=== PATIENT | female | born 1950 | race American Indian/Alaskan Native ===

== ENCOUNTER 2016-10-22 06:43 | Day surgery (SDC) | payer MEDICARE ==
--- NOTE | 2016-10-22 06:56 | Anesthesia Consultation ---
Anesthesia Consult and Med Hx Date of service: 10/22/16 - Airway Anesthetic Teeth Evaluation: Edentulous ROM Head & Neck: Inadequate Mental/Hyoid Distance: Adequate Mallampati Class: Class III Intubation Access Assessment: Possibly Difficult - Pulmonary Exam CTA: Yes - Cardiac Exam Cardiac Exam: RRR - Pre-Operative Health Status ASA Pre-Surgery Classification: ASA4 Proposed Anesthetic Plan: General - Pulmonary Hx Smoking: Yes COPD: Yes Hx Sleep Apnea: Yes - Cardiovascular System Hx Hypertension: Yes Hx Coronary Artery Disease: Yes (S/P CABG 2009, ) Hx Heart Attack/AMI: Yes Hx Angina: No (denies chest pain.tightness) Hx Valvular Heart Disease: Yes Hx Peripheral Vascular Disease: Yes - Central Nervous System Hx Back Pain: Yes Hx Psychiatric Problems: Yes - Endocrine Hx Renal Disease: Yes (CKD) Hx Non-Insulin Dependent Diabetes: Yes - Other Systems Hx Cancer: Yes Hx Obesity: Yes (Morbid obesity) - Additional Comments Anesthesia Medical History Comments: Patient has cardiac and pulmonary clearances on chart. He is very high risk for complications and this was discussed in detail with him and his . Risk of post op ventilation is high. Physical exam shows moderated delayed expiratory phase of respiration but patient says he is breathing at baseline. Recent ECHO shows Mild LVH with Mild hypokinesis with EF 40-45%. Recent thallium shows a large fixed defect with no reversables lesion.
--- NOTE | 2016-10-22 06:57 | Anesthesia Day of Surgery ---
Anesthesia Day of Surgery - Day of Surgery Patient Examined: Yes Patient H&P Reviewed: Yes Patient is NPO: Yes Beta Blockers: Yes Cardiac Clearance: Yes Pulmonary Clearance: Yes
[2016-10-22] MEDS ORDERED: NACL 0.9% 1000 ML 1,000 ML IV SCH (07:00)
[2016-10-22] MEDS ORDERED: PEPCID IV NR (07:00)
[2016-10-22] MEDS ORDERED: VERSED IV NR (07:00)
[2016-10-22] MEDS ORDERED: PROVENTIL IH NR (07:00)
[2016-10-22] MEDS ORDERED: NACL 0.9% 500 ML 500 ML IV SCH (08:00)
[2016-10-22 08:02] LABS: Basophils % (Auto) 0.5 % (0.0-1.8); Eosinophils % (Auto) 0.8 % (0.0-4.3); Hematocrit 40.5 % (30.3-42.9); Hemoglobin 13.2 gm/dl (10.1-14.3); Mean Corpuscular HGB Conc 33 % (30-34); Mean Corpuscular Hemoglobin 30 pg (28-32); Mean Corpuscular Volume 91 fl (79-97); Platelet Count 186 K/mm3 (140-440); Red Blood Count 4.42 M/mm3 (3.65-5.03); Red Cell Distribution Width 14.4 % (13.2-15.2); White Blood Count 6.4 K/mm3 (4.5-11.0)
[2016-10-22 08:12] LABS: INR 0.97 (0.87-1.13)
[2016-10-22 08:34] LABS: Anion Gap 17 mmol/L; BUN/Creatinine Ratio 11.11; Blood Urea Nitrogen 10 mg/dL (7-17); Calcium 9.3 mg/dL (8.4-10.2); Carbon Dioxide 25 mmol/L (22-30); Chloride 102.1 mmol/L (98-107); Glucose 141 mg/dL (65-100); Potassium 4.2 mmol/L (3.6-5.0); Sodium 140 mmol/L (137-145)
[2016-10-22] MEDS ORDERED: HEPARIN/NS 5000 UNIT/500ML(CATH LAB) 1,000 ML IR ONE (08:34)
[2016-10-22] MEDS ORDERED: HEPARIN 10,000 UNITS/10 ML ONE (08:34)
[2016-10-22] MEDS ORDERED: VERSED ONE (08:34)
[2016-10-22] MEDS ORDERED: XYLOCAINE 2% INFILTRATI ONE (08:35)
[2016-10-22] MEDS ORDERED: NITROGLYCERIN SYRINGE 0 ML ONE (08:35)
[2016-10-22] MEDS ORDERED: SUBLIMAZE ONE (08:35)
[2016-10-22] MEDS ORDERED: ZOFRAN ONE (09:31)
--- NOTE | 2016-10-22 10:00 | Prelim Cardiac Cath Report ---
Preliminary Cath Report - Hemodynamic Findings Aorta(AO): 140/70 Left Ventricular(LV): 140/18 - Other Findings Coronary Anatomy: 1. Severe [place] cad - 100% mid-rca - 70% prox LAD - diffuse small vessel dz in lcx - patent soriano to lad - patent radial to d1 - occluded radial to d2 - patent svg to rca 2. Nl lv fxn 3. no as plan: intensify medical therapy consider adding ranexa. Results d/w pt at length. No complications noted. Recommendations: medical therapy
--- NOTE | 2016-10-22 10:42 | Short Stay Summary ---
Short Stay Documentation Date of service: 10/22/16 - History H&P: obtained from office - Allergies and Medications Current Medications: Allergies aspirin Allergy (Verified 10/22/16 07:31) Nausea chlorpromazine Allergy (Verified 10/22/16 07:31) Anaphylaxis ciprofloxacin [From Cipro] Allergy (Verified 10/22/16 07:31) Hives ciprofloxacin HCl [From Cipro] Allergy (Verified 10/22/16 07:31) Hives Penicillins Allergy (Verified 10/22/16 07:31) Unknown Sulfa (Sulfonamide Antibiotics) Allergy (Verified 10/22/16 07:31) Unknown tramadol Allergy (Verified 10/22/16 07:31) Hives LAGCATIL Allergy (Uncoded 09/29/13 12:54) Unknown Home Medications Medication Instructions Recorded Confirmed Last Taken Type Amlodipine Besylate 10 mg PO DAILY 04/05/15 10/22/16 10/22/16 History Aspirin EC [Aspirin Enteric Coated 81 mg PO QDAY 04/05/15 10/22/16 10/22/16 History TAB] Benztropine [Cogentin] 1 mg PO DAILY 04/05/15 10/22/16 10/22/16 History Budesoni/Formoterol 80-4.5(Nf) 2 puff IH BID 04/05/15 10/22/16 10/20/16 History [Symbicort 80-4.5 (Nf)] Gabapentin 100 mg PO BID 04/05/15 10/22/16 04/04/15 History Lutein 10 mg PO DAILY 04/05/15 10/22/16 10/21/16 History Melatonin 3 mg PO QDAY 04/05/15 10/22/16 10/21/16 History Mv-Mn/FA/Vit K/Lycop/Lut/Coq10 1 each PO DAILY 04/05/15 10/22/16 10/21/16 History [Daily Multivitamin Capsule] OLANzapine [Zyprexa] 10 mg PO HS 04/05/15 10/22/16 10/21/16 History [place]-3 Fatty Acids [[place]-3] 1,000 mg PO DAILY 04/05/15 10/22/16 10/21/16 History Promethazine [Phenergan TAB] 25 mg PO PRN PRN 04/05/15 10/22/16 10/20/16 History Valsartan 320 mg PO DAILY 04/05/15 10/22/16 10/22/16 History traZODone [Desyrel] 100 mg PO QHS 04/05/15 10/22/16 10/21/16 History AtorvaSTATin [Lipitor] 20 mg PO QDAY 10/22/16 10/22/16 10/22/16 History Clopidogrel Bisulfate [Plavix] 75 mg PO QDAY 10/22/16 10/22/16 10/22/16 History Combivent Respimat 2 inh INHALATION Q4HR 10/22/16 10/22/16 10/22/16 History Divalproex ER [Depakote ER] 250 mg PO BID 10/22/16 10/22/16 10/22/16 History Glimepiride [Amaryl] 4 mg PO BID 10/22/16 10/22/16 10/22/16 History Loperamide [Imodium] 2 mg PO QDAY PRN 10/22/16 10/22/16 Unknown History Metformin HCl [Glucophage] 1,000 mg PO BID 10/22/16 10/22/16 10/21/16 History Metoprolol [Lopressor TAB] 25 mg PO BID 10/22/16 10/22/16 10/22/16 History Ranolazine [Ranexa] 500 mg PO BID #60 tab.er.12h 10/22/16 Unknown Rx Symbicort 80-4.5 (Nf) 2 inh INHALATION BID 10/22/16 10/22/16 10/22/16 History Active Medications Sodium Chloride (Nacl 0.9% 500 Ml) 500 mls @ 50 mls/hr IV DIRECT JUAN PABLO Stop: 10/22/16 17:59 Last Admin: 10/22/16 08:39 Dose: 50 mls/hr - Brief post op/procedure progress note Date of procedure: 10/22/16 Pre-op diagnosis: abnormal stress test Post-op diagnosis: other (CAD) Procedure: [facility] - please see cath report Anesthesia: local Estimated blood loss: none Pathology: none Condition: stable - Disposition Condition at discharge: Stable Disposition: [id number] TO HOME OR SELFCARE - Discharge Diagnoses (1) CAD (coronary artery disease) Status: Acute Qualifiers: Coronary Disease-Associated Artery/Lesion type: [place] artery [place] vs. transplanted heart: [place] heart Associated angina: with unstable angina Qualified Code(s): I25.110 - Atherosclerotic heart disease of [place] coronary artery with unstable angina pectoris (2) Diabetes mellitus Status: Chronic Qualifiers: Diabetes mellitus type: type 2 Diabetes mellitus complication status: with circulatory complication Diabetes mellitus complication detail: with peripheral angiopathy without gangrene Diabetic retinopathy severity: D Proliferative retinopathy type: P Diabetes mellitus macular edema: D Diabetes mellitus residential insulin use: D Laterality: L Chronic kidney disease stage: C (3) Hyperlipemia, mixed Status: Chronic (4) Hypertension Status: Chronic Qualifiers: Hypertension type: essential hypertension Qualified Code(s): I10 - Essential (primary) hypertension Short Stay Discharge Plan Activity: advance as tolerated Weight Bearing Status: Full Weight Bearing Diet: low fat, low cholesterol, low salt Wound: open to air, keep clean and dry Follow up with: DESTINEY HENAO MD [Primary Care Provider] - 7 Days QI CHRISTIAN MD [Staff Physician] - 7 Days ([place] office on 11/14/2016 @ 11:15AM) Prescriptions: Ranolazine [Ranexa] 500 mg PO BID #60 tab.er.12h
[2016-10-22 14:51] VITALS: BP 121/51
== END 2016-10-22 15:30 | disposition home or self-care (01) ==
LOC: OPU 06:43
PROVIDERS: ATTEND Internal Medicine
DX: I25.10 Atherosclerotic heart disease of native coronary artery without angina pectoris (principal); E78.2 Mixed hyperlipidemia; I25.2 Old myocardial infarction; J44.9 Chronic obstructive pulmonary disease, unspecified; E11.22 Type 2 diabetes mellitus with diabetic chronic kidney disease; I12.9 Hypertensive chronic kidney disease with stage 1 through stage 4 chronic kidney disease, or unspecified chronic kidney disease; N18.9 Chronic kidney disease, unspecified; E66.01 Morbid (severe) obesity due to excess calories; Z68.26 Body mass index [BMI] 26.0-26.9, adult; Z79.82 Long term (current) use of aspirin; Z79.899 Other long term (current) drug therapy; Z79.84 Long term (current) use of oral hypoglycemic drugs; Z88.1 Allergy status to other antibiotic agents; Z88.0 Allergy status to penicillin; Z88.2 Allergy status to sulfonamides; Z88.8 Allergy status to other drugs, medicaments and biological substances; Z91.018 Allergy to other foods; Z85.3 Personal history of malignant neoplasm of breast; Z95.1 Presence of aortocoronary bypass graft; Z90.710 Acquired absence of both cervix and uterus; Z90.49 Acquired absence of other specified parts of digestive tract; Z98.890 Other specified postprocedural states; Z90.10 Acquired absence of unspecified breast and nipple; Z87.891 Personal history of nicotine dependence; Z86.79 Personal history of other diseases of the circulatory system
CPT/HCPCS: 36415; 80048; 85025; 85610; 85730; 93005; 93010; 93459; J1644; J2250; J2405; J3010; J7040; Q9967